=== PATIENT | female | born 1965 | race Asian ===

== ENCOUNTER → 2017-01-07 | Outpatient (CLI) | payer OTHER ==
[~2017-01-07] MED LIST: ACET-709 PO; ERGO500017 PO; ESTR1PAT40 TP; IRON PO; METF500T27 PO; OMEG1CAP12 PO; SIMV10TA3 PO; SITA100T PO; VITA400C40 PO; VITAMIN B12 PO; [UNRECOGNIZED DRUG - OTHER] PO; [UNRECOGNIZED DRUG - OTHER] PO; [UNRECOGNIZED DRUG - OTHER] PO
== END | disposition home or self-care (01) ==
LOC: RAD 14:09
PROVIDERS: ATTEND Internal Medicine Gastroenterology
DX: Z12.11 Encounter for screening for malignant neoplasm of colon (principal); K92.1 Melena
CPT/HCPCS: 74270

== ENCOUNTER → 2017-10-22 | Outpatient (CLI) | payer OTHER ==
[~2017-10-22] MED LIST changes: -OMEG1CAP12 PO; +OMEG1CAP23 PO; -VITA400C40 PO; +VITA400C43 PO
== END | disposition home or self-care (01) ==
LOC: CFH 10:36
PROVIDERS: ATTEND Obstetrics & Gynecology Maternal & Fetal Medicine
DX: Z12.31 Encounter for screening mammogram for malignant neoplasm of breast (principal)
CPT/HCPCS: 77063; 77067

== ENCOUNTER → 2018-12-29 | Outpatient (CLI) | payer OTHER | END | disposition home or self-care (01) | LOC: CFH 14:48 | PROVIDERS: ATTEND Nurse Practitioner Family | DX: Z12.31 Encounter for screening mammogram for malignant neoplasm of breast (principal) | CPT/HCPCS: 77063; 77067 ==

== ENCOUNTER → 2021-03-01 | Outpatient (CLI) | payer OTHER ==
[~2021-03-01] MED LIST changes: +SIMV10TA18 PO; -SIMV10TA3 PO
== END | disposition home or self-care (01) ==
LOC: CFH 11:34
PROVIDERS: ATTEND Obstetrics & Gynecology Maternal & Fetal Medicine
DX: Z12.31 Encounter for screening mammogram for malignant neoplasm of breast (principal)
CPT/HCPCS: 77063; 77067